=== PATIENT | female | born 1960 | race Two or more races ===

== ENCOUNTER 2017-12-03 11:17 | Outpatient (CLI) | payer OTHER | END 2017-12-03 11:31 | disposition home or self-care (01) | LOC: RAD 501 11:17 | DX: M25.561 Pain in right knee (principal) ==

== ENCOUNTER 2019-02-18 18:00 | Emergency (ER) | payer OTHER ==
[~2019-02-18] VITALS: Ht 157.5 cm; Wt 69.9 kg
== END 2019-02-18 20:57 | disposition home or self-care (01) ==
LOC: ER 18:00
DX: S00.83XA Contusion of other part of head, initial encounter (principal); W18.39XA Other fall on same level, initial encounter; Y93.89 Activity, other specified; Y92.098 Other place in other non-institutional residence as the place of occurrence of the external cause; Y99.8 Other external cause status; D31.61 Benign neoplasm of unspecified site of right orbit

== ENCOUNTER 2021-07-18 08:05 | Outpatient (CLI) | payer OTHER | END 2021-07-18 08:25 | disposition home or self-care (01) | LOC: RAD 08:05 | PROVIDERS: ATTEND Internal Medicine | DX: G93.89 Other specified disorders of brain (principal); J45.998 Other asthma; G44.82 Headache associated with sexual activity; G44.53 Primary thunderclap headache; I60.8 Other nontraumatic subarachnoid hemorrhage; D18.02 Hemangioma of intracranial structures; D18.01 Hemangioma of skin and subcutaneous tissue | CPT/HCPCS: 70496 ==

== ENCOUNTER 2022-01-01 08:42 | Outpatient (CLI) | payer OTHER | END 2022-01-02 15:01 | disposition home or self-care (01) | LOC: SONOGRAMA 08:42 | PROVIDERS: ATTEND Radiology Diagnostic Radiology | DX: I10 Essential (primary) hypertension (principal) ==

== ENCOUNTER 2022-03-20 10:58 | Outpatient (CLI) | payer OTHER | END 2022-03-20 11:15 | disposition home or self-care (01) | LOC: MRI 10:58 | PROVIDERS: ATTEND Orthopaedic Surgery Sports Medicine | DX: M17.11 Unilateral primary osteoarthritis, right knee (principal) | CPT/HCPCS: 73721 ==

== ENCOUNTER 2022-04-28 12:45 | Outpatient (CLI) | payer OTHER | END 2022-04-28 12:49 | disposition home or self-care (01) | LOC: RAD 12:45 | PROVIDERS: ATTEND Orthopaedic Surgery Sports Medicine | DX: M17.11 Unilateral primary osteoarthritis, right knee (principal); M17.12 Unilateral primary osteoarthritis, left knee ==

== ENCOUNTER 2022-06-03 11:28 | Emergency (ER) | payer OTHER ==
[~2022-06-03] VITALS: Ht 154.9 cm; Wt 68.5 kg
== END 2022-06-03 15:38 | disposition home or self-care (01) ==
LOC: ER 11:28
DX: B34.9 Viral infection, unspecified (principal); Z20.822 Contact with and (suspected) exposure to COVID-19

== ENCOUNTER 2022-07-23 07:26 | Outpatient (CLI) | payer OTHER | END 2022-07-23 07:27 | disposition home or self-care (01) | LOC: NUCLEAR 07:26 | PROVIDERS: ATTEND Internal Medicine Rheumatology | DX: M06.4 Inflammatory polyarthropathy (principal) | CPT/HCPCS: 78315; A9503 ==

== ENCOUNTER 2022-10-21 09:27 | Outpatient (CLI) | payer OTHER | END 2022-10-21 15:18 | disposition home or self-care (01) | LOC: SONOGRAMA 09:27 | PROVIDERS: ATTEND Internal Medicine Rheumatology | DX: M06.09 Rheumatoid arthritis without rheumatoid factor, multiple sites (principal); M50.30 Other cervical disc degeneration, unspecified cervical region; M50.10 Cervical disc disorder with radiculopathy, unspecified cervical region; M50.20 Other cervical disc displacement, unspecified cervical region ==

== ENCOUNTER 2023-03-10 11:51 | Outpatient (CLI) | payer OTHER | END 2023-03-10 12:10 | disposition home or self-care (01) | LOC: RAD 11:51 | PROVIDERS: ATTEND Radiology Diagnostic Radiology | DX: M05.10 Rheumatoid lung disease with rheumatoid arthritis of unspecified site (principal) ==

== ENCOUNTER 2023-09-22 11:44 | Outpatient (CLI) | payer OTHER | END 2023-09-22 12:24 | disposition home or self-care (01) | LOC: RAD 11:44 | PROVIDERS: ATTEND Physical Medicine & Rehabilitation | DX: M54.59 Other low back pain (principal) ==

== ENCOUNTER 2023-12-17 11:35 | Outpatient (CLI) | payer OTHER | END 2023-12-17 11:50 | disposition home or self-care (01) | LOC: MRI 11:35 | PROVIDERS: ATTEND Internal Medicine Rheumatology | DX: I10 Essential (primary) hypertension (principal); M54.17 Radiculopathy, lumbosacral region | CPT/HCPCS: 72148 ==

== ENCOUNTER 2024-09-22 14:38 | Emergency (ER) | payer OTHER ==
[~2024-09-22] VITALS: Ht 154.9 cm; Wt 68.0 kg
[2024-09-22 14:55] VITALS: BP 139/90; O2SAT 97
[2024-09-22] MEDS ORDERED: TOPROL XL25 M1 (14:56)
[2024-09-22 17:36] LABS: HEMATOCRIT 41.2 % (36.0-45.00); HEMOGLOBIN 14.2 g/dL (12.0-15.00); MEAN CELL VOLUME 95.2 fL (80.00-100.00); MEAN CORPUSCULAR HEMOGLOBIN 32.8 pg (27.00-32.0); MEAN CORPUSCULAR HGB CONC 34.4 g/dl (32.0-36.0); PLATELET COUNT 109 K/uL (150-450); RED BLOOD COUNT 4.33 M/uL (4.00-6.00)
[2024-09-22] MEDS ORDERED: FAMOTIDINE/PF 20 MG/2 ML VIAL IV ONE (17:45)
[2024-09-22 18:17] LABS: INR 1.01; PARTIAL THROMBOPLASTIN TIME 29.7 SECONDS (22.0-34.0)
[2024-09-22 18:22] LABS: CALCIUM 9.7 mg/dL (8.5-10.1); CREATININE SERUM 0.79 mg/dL (0.55-1.02); GFR 73.27; POTASSIUM 4.07 mEq/L (3.5-5.1)
== END 2024-09-22 20:15 | disposition home or self-care (01) ==
LOC: ER 14:40
PROVIDERS: Emergency Medicine
DX: I47.10 Supraventricular tachycardia, unspecified (principal); R00.2 Palpitations

== ENCOUNTER 2024-09-26 09:48 | Outpatient (CLI) | payer OTHER ==
[~2024-09-26 09:48] MED LIST: TOPROL XL25 M1
== END 2024-09-26 09:56 | disposition home or self-care (01) ==
LOC: SONOGRAMA 09:48
PROVIDERS: ATTEND Emergency Medicine
DX: R10.9 Unspecified abdominal pain (principal); R16.2 Hepatomegaly with splenomegaly, not elsewhere classified

== ENCOUNTER 2024-09-26 10:45 | Outpatient (CLI) | payer OTHER ==
[2024-09-26 11:57] LABS: HEMATOCRIT 40.1 % (36.0-45.00); HEMOGLOBIN 13.3 g/dL (12.0-15.00); MEAN CELL VOLUME 97.6 fL (80.00-100.00); MEAN CORPUSCULAR HEMOGLOBIN 32.4 pg (27.00-32.0); MEAN CORPUSCULAR HGB CONC 33.2 g/dl (32.0-36.0); RED BLOOD COUNT 4.11 M/uL (4.00-6.00); RED CELL DISTRIBUTION WIDTH 16.4 % (11.5-14.5)
[2024-09-26 11:58] LABS: PLATELET COUNT 93 K/uL (150-450)
[2024-09-26 12:35] LABS: ALBUMIN 4.1 gm/dL (3.4-5.0); BILIRUBIN TOTAL 0.93 mg/dL (0.3-1.2); CALCIUM 9.2 mg/dL (8.5-10.1); CREATININE SERUM 0.69 mg/dL (0.55-1.02); GFR 85.65; GLOBULINA 3.1 G/DL (2.4-3.5); POTASSIUM 4.06 mEq/L (3.5-5.1); TOTAL PROTEIN 7.2 gm/dL (6.4-8.2)
== END 2024-09-26 10:53 | disposition home or self-care (01) ==
LOC: LAB 10:45
PROVIDERS: ATTEND Emergency Medicine
DX: B34.9 Viral infection, unspecified (principal); D69.6 Thrombocytopenia, unspecified

== ENCOUNTER → 2024-10-03 | Outpatient (CLI) | payer OTHER | END | disposition home or self-care (01) | LOC: TOM 08:30 | PROVIDERS: ATTEND Specialist | DX: K57.91 Diverticulosis of intestine, part unspecified, without perforation or abscess with bleeding (principal) ==

== ENCOUNTER 2024-10-25 17:59 | Emergency (ER) | payer OTHER ==
[~2024-10-25] VITALS: Ht 165.1 cm; Wt 80.7 kg
[2024-10-25 22:11] LABS: INR 1.04; PARTIAL THROMBOPLASTIN TIME 27.6 SECONDS (22.0-34.0); PROTHROMBIN TIME 11.3 SECONDS (9.0-11.5)
[2024-10-25 22:17] LABS: ALBUMIN 4.1 gm/dL (3.4-5.0); BILIRUBIN TOTAL 0.69 mg/dL (0.3-1.2); CALCIUM 9.6 mg/dL (8.5-10.1); CREATININE SERUM 0.62 mg/dL (0.55-1.02); GFR 96.91; GLOBULINA 3.7 G/DL (2.4-3.5); HEMATOCRIT 39.9 % (36.0-45.00); HEMOGLOBIN 13.3 g/dL (12.0-15.00); MEAN CELL VOLUME 96.5 fL (80.00-100.00); MEAN CORPUSCULAR HEMOGLOBIN 32.1 pg (27.00-32.0); MEAN CORPUSCULAR HGB CONC 33.3 g/dl (32.0-36.0); POTASSIUM 4.24 mEq/L (3.5-5.1); RED BLOOD COUNT 4.14 M/uL (4.00-6.00); RED CELL DISTRIBUTION WIDTH 16.2 % (11.5-14.5); TOTAL PROTEIN 7.8 gm/dL (6.4-8.2)
[2024-10-25 22:23] LABS: PLATELET COUNT 101 K/uL (150-450)
== END 2024-10-25 23:20 | disposition home or self-care (01) ==
LOC: ER 17:59
PROVIDERS: General Practice
DX: R53.81 Other malaise (principal); D69.6 Thrombocytopenia, unspecified; I10 Essential (primary) hypertension

== ENCOUNTER 2025-02-10 10:49 | Outpatient (CLI) | payer OTHER | END 2025-02-10 10:56 | disposition home or self-care (01) | LOC: RAD 10:49 | PROVIDERS: ATTEND Internal Medicine Hematology & Oncology | DX: J20.8 Acute bronchitis due to other specified organisms (principal); R05.1 Acute cough ==

== ENCOUNTER 2025-07-10 10:42 | Outpatient (CLI) | payer OTHER | END 2025-07-10 10:46 | disposition home or self-care (01) | LOC: TOM 10:42 | PROVIDERS: ATTEND Radiology Diagnostic Radiology | DX: M54.50 Low back pain, unspecified (principal); R51.9 Headache, unspecified ==

== ENCOUNTER 2025-09-28 12:28 | Outpatient (CLI) | payer OTHER | END 2025-09-28 12:33 | disposition home or self-care (01) | LOC: RAD 12:28 | PROVIDERS: ATTEND Internal Medicine Rheumatology | DX: I10 Essential (primary) hypertension (principal) ==

== ENCOUNTER 2025-10-03 08:59 | Outpatient (CLI) | payer OTHER | END 2025-10-03 09:06 | disposition home or self-care (01) | LOC: SONOGRAMA 08:59 | PROVIDERS: ATTEND Radiology Diagnostic Radiology | DX: K76.0 Fatty (change of) liver, not elsewhere classified (principal) ==